=== PATIENT | male | born 1965 | race African-American/Black ===

== ENCOUNTER 2020-01-06 11:24 | Inpatient (IN) ==
[2020-01-07] MEDS ORDERED: CEFUROXIME INJ 1,500 MG in SYRINGE 1 EACH IV ONE (09:37)
[2020-01-07] MEDS ORDERED: DEXTROSE 10% 250 ML BAG IV PRN (09:37)
[2020-01-07] MEDS ORDERED: GLUCAGON 1 MG VIAL IM PRN (09:37)
[2020-01-07] MEDS ORDERED: SODIUM CHLORIDE 0.9% 1,000 ML IV SCH (10:00)
[2020-01-07] MEDS ORDERED: CLORAZEPATE 3.75 MG TABLET PO PRN (10:03)
[2020-01-07 10:31] LABS: Basophils # 0.1 10*3/uL (0.0-0.2); Basophils % 0.6 % (0.0-0.8); Eosinophils # 0.1 10*3/uL (0.0-0.87); Eosinophils % 1.3 % (0.00-10.9); Hemoglobin 13.9 GM/DL (14.0-18.0); Immature Granulocytes % 0.2 %; Immature Granulocytes Absolute 0.02 #; Lymphocytes # 1.9 10*3/uL (1.4-4.0); Lymphocytes % 23.7 % (21.2-54.2); Mean Corpuscular HGB Conc 33.1 GM/DL (32-36); Mean Platelet Volume 10.1 FL (9.6-12.0); Monocytes % 8.8 % (1.7-12.7); Neutrophils % 65.4 % (38.7-73.9); Platelet Count 235 T/CUMM (130-400); Red Blood Count 4.04 MC/CUMM (3.8-5.5); Red Cell Distribution Width 11.4 % (9.3-17.3); White Blood Count 8.2 T/CUMM (4-12)
[2020-01-07 10:52] LABS: Albumin 3.9 G/DL (3.4-5.0); Bilirubin,Total 1.1 MG/DL (0.2-1.0); Calcium 9.2 MG/DL (8.5-10.1); Osmolality,Calculated 274.8 MOS/KG (273-304); Total Protein 7.6 G/DL (6.4-8.3)
[2020-01-07] MEDS: INSULIN LISPRO 100 UNIT/ML SUBCUT SCH ×3 (11:06→21:19)
[2020-01-07 11:32] LABS: ABG Base Excess 1.6 MMOL/L (-2.5-2.5); ABG HCO3 25.4 MMOL/L (20-26); ABG Oxygen Saturation 94.4 % (95-100); ABG PCO2 37.2 MM HG (35-48); ABG PH 7.452 (7.35-7.45); ABG PO2 71.5 MM HG (80-95); ABG TCO2 26.5 MMOL/L (23-27); Allen Test Positive
[2020-01-07] MEDS: CHLORHEXIDINE 4% SOLN 118 ML BOTTLE TOP SCH ×2 (15:04→21:19)
[2020-01-07] MEDS: CHLORHEXIDINE 0.12% ORAL RINSE 60 ML BOTTLE SWISH/SPIT SCH (21:19)
[2020-01-08] MEDS ORDERED: VANCOMYCIN 1,000 MG VIAL ONE (04:22)
[2020-01-08] MEDS ORDERED: PAPAVERINE 60 MG/2 ML VIAL ONE (04:22)
[2020-01-08] MEDS ORDERED: VANCOMYCIN 500 MG VIAL ONE (04:22)
[2020-01-08] MEDS ORDERED: MIDAZOLAM 10 MG/2 ML VIAL ONE ×2 (05:55)
[2020-01-08] MEDS ORDERED: SUFentanil 250 MCG/5 ML AMP ONE (05:55)
[2020-01-08] MEDS ORDERED: DIAZEPAM 5 MG TABLET PO ONE (06:00)
[2020-01-08] MEDS ORDERED: FAMOTIDINE 20 MG TABLET PO ONE (06:00)
[2020-01-08] MEDS ORDERED: CEFUROXIME INJ 1,500 MG in SYRINGE 1 EACH IV ONE (07:00)
[2020-01-08] MEDS ORDERED: SODIUM CHLORIDE 0.9% 1,000 ML IV SCH (07:00)
[2020-01-08 07:42] LABS: ABG Base Excess 0.9 MMOL/L (-2.5-2.5); ABG HCO3 25.2 MMOL/L (20-26); ABG Oxygen Saturation 99.4 % (95-100); ABG PCO2 43.3 MM HG (35-48); ABG PH 7.389 (7.35-7.45); ABG TCO2 22.9 MMOL/L (23-27); Glucose Heart Surgery 168 MG/DL (74-106); Hematocrit Heart Surgery 40.3 PERCENT (42-52); Hemoglobin Heart Surgery 13.1 G/DL (14.0-18.0); PCO2 Patient Temp Arterial 43.3 MMHG; PH Patient Temp Arterial 7.389; Patient Temperature 37 CELCIUS; Potassium Heart/CVR 3.8 MMOL/L (3.5-5.1); Sodium Heart/CVR 138 MMOL/L (135-145)
[2020-01-08 07:50] LABS: Apearance,Urine CLEAR (Clear); Bacteria,Urine Occasional /HPF (Few); Bilirubin,Urine Negative (Negative); Blood, Urine Small mg/dL (Negative); Glucose,Urine (UA) Negative (Negative); Ketones,Urine Negative (Negative); Mucus,Urine Occasional /LPF (Occasional); Nitrite,Urine Negative (Negative); Protein,Urine Negative; RBC,Urine 8 /HPF (0-4); Squamous Epithelial Cell,Urine Occasional /HPF (0-10); Urine Color Yellow (Yellow); Urine Specific Gravity 1.016 (1.001-1.035); WBC,Urine <1 /HPF (0-6)
[2020-01-08] MEDS: CHLORHEXIDINE 0.12% ORAL RINSE 60 ML BOTTLE SWISH/SPIT SCH ×2 (08:41→21:04)
[2020-01-08] MEDS: INSULIN LISPRO 100 UNIT/ML SUBCUT SCH ×2 (08:41→12:28)
[2020-01-08] MEDS: CHLORHEXIDINE 4% SOLN 118 ML BOTTLE TOP SCH (08:41)
[2020-01-08] MEDS ORDERED: CALCIUM CHLORIDE 1,000 MG/10 ML VIAL IV ONE (09:19)
[2020-01-08] MEDS ORDERED: AMINOCAPROIC ACID 5,000 MG/20 ML VIAL ONE (09:20)
[2020-01-08] MEDS ORDERED: HEPARIN/NACL 0.9% 2 UNITS/ML 500 ML IV ONE (09:20)
[2020-01-08] MEDS ORDERED: NITROGLYCERIN DRIP 50 MG/250 ML BOTTLE IV ONE (09:20)
[2020-01-08] MEDS ORDERED: PHENYLEPHRINE DRIP 20 MG/250 ML PREMIX IV ONE (09:20)
[2020-01-08 09:21] LABS: Hematocrit Heart Surgery 29.3 PERCENT (42-52); Hemoglobin Heart Surgery 9.4 G/DL (14.0-18.0); PCO2 Patient Temp Venous 34.4 MM HG; PH Patient Temp Venous 7.466; PO2 Patient Temp Venous 35.3 MM HG; Potassium Heart/CVR 4.4 MMOL/L (3.5-5.1); VBG Base Excess 1.4 MEQ/L (0-4); VBG HCO3 25.3 MEQ/L (24-28); VBG Oxygen Saturation 77.6 %; VBG PCO2 37.9 MMHG (41-51); VBG PH 7.436; VBG PO2 40.6 MMHG (17-40)
[2020-01-08] MEDS ORDERED: ALBUMIN 5% 12.5 GM/250 ML VIAL IV ONE (09:49)
[2020-01-08] MEDS ORDERED: POTASSIUM CHLORIDE RIDER 100 ML IV ONE ×2 (09:49→12:30)
[2020-01-08] MEDS ORDERED: CALCIUM CHLORIDE 1,000 MG/10 ML SYRINGE IV ONE (09:49)
[2020-01-08] MEDS ORDERED: SODIUM BICARBONATE 50 MEQ/50 ML VIAL IV ONE ×2 (09:49→10:41)
[2020-01-08] MEDS ORDERED: NITROPRUSSIDE 50 MG/2 ML VIAL ONE (09:49)
[2020-01-08] MEDS ORDERED: PHENYLEPHRINE DRIP 40 MG/250 ML PREMIX IV ONE (09:53)
[2020-01-08 09:54] LABS: Hematocrit Heart Surgery 31.7 PERCENT (42-52); Hemoglobin Heart Surgery 10.3 G/DL (14.0-18.0); PCO2 Patient Temp Venous 35.8 MM HG; PH Patient Temp Venous 7.443; PO2 Patient Temp Venous 41.9 MM HG; Potassium Heart/CVR 4.1 MMOL/L (3.5-5.1); VBG Base Excess 0.7 MEQ/L (0-4); VBG HCO3 24.8 MEQ/L (24-28); VBG Oxygen Saturation 86.4 %; VBG PCO2 41.3 MMHG (41-51); VBG PH 7.399; VBG PO2 51.5 MMHG (17-40)
[2020-01-08 10:26] LABS: Hematocrit Heart Surgery 33.1 PERCENT (42-52); Hemoglobin Heart Surgery 10.7 G/DL (14.0-18.0); PCO2 Patient Temp Venous 42.6 MM HG; PH Patient Temp Venous 7.391; Potassium Heart/CVR 4.3 MMOL/L (3.5-5.1); VBG Base Excess 0.7 MEQ/L (0-4); VBG HCO3 24.8 MEQ/L (24-28); VBG Oxygen Saturation 79.8 %; VBG PCO2 42.6 MMHG (41-51); VBG PH 7.391
[2020-01-08] MEDS ORDERED: DEXTROSE 5% KCL 20 MEQ 20 MEQ/1,000 ML BAG IV ONE (10:39)
[2020-01-08] MEDS ORDERED: ALBUMIN 25% 25 GM/100 ML VIAL IV ONE (10:39)
[2020-01-08] MEDS ORDERED: PROTAMINE SULFATE 250 MG/25 ML VIAL IV ONE (10:39)
[2020-01-08] MEDS ORDERED: MAGNESIUM SULFATE 5 GM/10 ML VIAL IV ONE (10:40)
[2020-01-08] MEDS ORDERED: FUROSEMIDE 20 MG/2 ML VIAL ONE (10:40)
[2020-01-08] MEDS ORDERED: HEPARIN 10,000 UNIT/10 ML VIAL ONE (10:40)
[2020-01-08] MEDS ORDERED: methylPREDNISolone SOD SUC 1,000 MG/8 ML VIAL ONE (10:41)
[2020-01-08] MEDS ORDERED: LIDOCAINE 2% 5 ML VIAL ONE ×2 (10:41→12:25)
[2020-01-08 11:02] LABS: ABG Base Excess -0.7 MMOL/L (-2.5-2.5); ABG HCO3 23.9 MMOL/L (20-26); ABG Oxygen Saturation 98.6 % (95-100); ABG PCO2 40.3 MM HG (35-48); ABG PH 7.387 (7.35-7.45); ABG TCO2 21.7 MMOL/L (23-27); Glucose Heart Surgery 225 MG/DL (74-106); Hematocrit Heart Surgery 34.5 PERCENT (42-52); Hemoglobin Heart Surgery 11.2 G/DL (14.0-18.0); Ionized Calcium Arterial 1.25 MMOL/L (1.21-1.46); PCO2 Patient Temp Arterial 40.3 MMHG; PH Patient Temp Arterial 7.387; Patient Temperature 37 CELCIUS; Sodium Heart/CVR 136 MMOL/L (135-145)
[2020-01-08] MEDS ORDERED: INSULIN REGULAR DRIP 100 ML IV SCH (11:37)
[2020-01-08] MEDS ORDERED: ACETAMINOPHEN 650 MG SUPP RECTAL PRN (11:37)
[2020-01-08] MEDS ORDERED: SODIUM CHLORIDE 0.45% 1,000 ML IV SCH ×2 (11:37)
[2020-01-08] MEDS ORDERED: VECURONIUM 10 MG VIAL IV PRN ×2 (11:37)
[2020-01-08] MEDS ORDERED: MAGNESIUM SULF RIDER 4 GM in PREMIX 1 EACH IV PRN (11:37)
[2020-01-08] MEDS ORDERED: CALCIUM CHLORIDE 1,000 MG/10 ML SYRINGE IV PRN (11:37)
[2020-01-08] MEDS ORDERED: CHLORHEXIDINE 4% SOLN 118 ML BOTTLE TOP PRN (11:37)
[2020-01-08] MEDS ORDERED: LACTATED RINGERS 250 ML IV PRN (11:37)
[2020-01-08] MEDS ORDERED: INSULIN REGULAR 100 UNIT/ML IV ONE (11:37)
[2020-01-08] MEDS ORDERED: PHENYLEPHRINE DRIP 40 MG/250 ML PREMIX IV PRN (11:37)
[2020-01-08] MEDS ORDERED: ONDANSETRON 4 MG/2 ML VIAL IV PRN (11:37)
[2020-01-08] MEDS ORDERED: MIDAZOLAM 10 MG/2 ML VIAL IV PRN (11:37)
[2020-01-08] MEDS ORDERED: INSULIN REGULAR 100 UNIT/ML IV PRN (11:37)
[2020-01-08] MEDS ORDERED: DEXTROSE 10% 250 ML BAG IV PRN ×2 (11:37)
[2020-01-08] MEDS ORDERED: NITROPRUSSIDE 100 MG in DEXTROSE 5% 250 ML IV PRN (11:37)
[2020-01-08] MEDS ORDERED: MORPHINE 10 MG/1 ML VIAL IV PRN (11:37)
[2020-01-08] MEDS ORDERED: MAGNESIUM SULF RIDER 2 GM in PREMIX 1 EACH IV PRN (11:37)
[2020-01-08 12:06] LABS: ABG Base Excess -0.9 MMOL/L (-2.5-2.5); ABG Oxygen Saturation 94.3 % (95-100); ABG PCO2 40.6 MM HG (35-48); ABG PO2 76.9 MM HG (80-95); ABG TCO2 25.3 MMOL/L (23-27); Glucose Heart Surgery 200 MG/DL (74-106); Hemoglobin Heart Surgery 12.2 G/DL (14.0-18.0); Potassium Heart/CVR 3.9 MMOL/L (3.5-5.1)
[2020-01-08 12:14] LABS: Basophils % 0.2 % (0.0-0.8); Eosinophils % 0.3 % (0.00-10.9); Hematocrit 34.9 VOL% (42.0-52.0); Immature Granulocytes % 0.7 %; Immature Granulocytes Absolute 0.09 #; Lymphocytes # 0.8 10*3/uL (1.4-4.0); Lymphocytes % 6.4 % (21.2-54.2); Mean Corpuscular HGB Conc 33.5 GM/DL (32-36); Mean Corpuscular Volume 104.8 FL (87-102); Mean Platelet Volume 10.1 FL (9.6-12.0); Monocytes % 4.8 % (1.7-12.7); Neutrophils % 87.6 % (38.7-73.9); Red Blood Count 3.33 MC/CUMM (3.8-5.5); Red Cell Distribution Width 11.3 % (9.3-17.3)
[2020-01-08 12:15] LABS: Hemoglobin 11.7 GM/DL (14.0-18.0); Platelet Count 166 T/CUMM (130-400); White Blood Count 12.3 T/CUMM (4-12)
[2020-01-08 12:20] LABS: INR 1.1; PT Patient Result 12.4 SECS (9.6-12.2); Partial Thromboplastin Time 23.8 SECS (20.8-36.0)
[2020-01-08 12:24] LABS: Albumin 3.4 G/DL (3.4-5.0); Bilirubin,Total 0.7 MG/DL (0.2-1.0); Calcium 8.4 MG/DL (8.5-10.1); Osmolality,Calculated 284.4 MOS/KG (273-304); Total Protein 6.1 G/DL (6.4-8.3)
[2020-01-08] MEDS ORDERED: SODIUM CHLORIDE 0.9% 250 ML IV ONE (12:25)
[2020-01-08] MEDS ORDERED: SEVOFLURANE 1 UNIT/15 MINUTE INH ONE (12:25)
[2020-01-08] MEDS ORDERED: ETOMIDATE 40 MG/20 ML VIAL IV ONE (12:25)
[2020-01-08] MEDS ORDERED: SODIUM CHLORIDE 0.9% 1,000 ML IV ONE (12:25)
[2020-01-08] MEDS ORDERED: LACTATED RINGERS 1,000 ML IV ONE (12:25)
[2020-01-08] MEDS ORDERED: VECURONIUM 10 MG VIAL IV ONE (12:25)
[2020-01-08] MEDS ORDERED: SODIUM CHLORIDE 0.9% 200 ML IV ONE (12:25)
[2020-01-08] MEDS ORDERED: SUCCINYLCHOLINE 200 MG/10 ML VIAL ONE (12:25)
[2020-01-08] MEDS ORDERED: MINERAL OIL/PETROLATUM OPH OINT 3.5 GM TUBE ONE (12:26)
[2020-01-08] MEDS: POTASSIUM CHLORIDE RIDER 20 MEQ in PREMIX 1 EACH IV PRN ×4 (12:28→18:15)
[2020-01-08 12:33] LABS: CKMB % 4.7 %
[2020-01-08 12:35] LABS: Troponin I 3.97 NG/ML (0.00-0.045)
[2020-01-08] MEDS: LACTATED RINGERS 1,000 ML IV PRN ×2 (13:00→15:48)
[2020-01-08] MEDS: POTASSIUM CHLORIDE RIDER 10 MEQ in PREMIX 1 EACH IV PRN ×2 (13:06→19:19)
[2020-01-08 13:37] LABS: ABG Base Excess -1.1 MMOL/L (-2.5-2.5); ABG HCO3 23.5 MMOL/L (20-26); ABG Oxygen Saturation 97.9 % (95-100); ABG PCO2 41.5 MM HG (35-48); ABG PH 7.372 (7.35-7.45); ABG TCO2 21.3 MMOL/L (23-27); Glucose Heart Surgery 173 MG/DL (74-106); Hemoglobin Heart Surgery 12.4 G/DL (14.0-18.0); Potassium Heart/CVR 4.1 MMOL/L (3.5-5.1)
[2020-01-08] MEDS: ALBUMIN 5% 12.5 GM in PREMIX 1 EACH IV PRN ×2 (15:09→15:36)
[2020-01-08] MEDS: MIDAZOLAM 2 MG/2 ML VIAL IV PRN ×2 (15:30→17:42)
[2020-01-08 16:04] LABS: ABG Base Excess -1.6 MMOL/L (-2.5-2.5); ABG Oxygen Saturation 96.3 % (95-100); ABG PCO2 43.8 MM HG (35-48); ABG PH 7.356 (7.35-7.45); ABG PO2 92.2 MM HG (80-95); ABG TCO2 25.3 MMOL/L (23-27); Glucose Heart Surgery 133 MG/DL (74-106); Hemoglobin Heart Surgery 12.1 G/DL (14.0-18.0); Potassium Heart/CVR 3.3 MMOL/L (3.5-5.1)
[2020-01-08 16:37] LABS: ABG Base Excess -1.7 MMOL/L (-2.5-2.5); ABG Oxygen Saturation 96.8 % (95-100); ABG PCO2 51.9 MM HG (35-48); ABG PO2 94.5 MM HG (80-95); ABG TCO2 22.9 MMOL/L (23-27); Glucose Heart Surgery 134 MG/DL (74-106); Hematocrit Heart Surgery 37.1 PERCENT (42-52); Hemoglobin Heart Surgery 12.1 G/DL (14.0-18.0); Potassium Heart/CVR 3.8 MMOL/L (3.5-5.1)
[2020-01-08 18:02] LABS: ABG Base Excess -1.6 MMOL/L (-2.5-2.5); ABG Oxygen Saturation 97.3 % (95-100); ABG PH 7.335 (7.35-7.45); ABG PO2 94.8 MM HG (80-95); Glucose Heart Surgery 115 MG/DL (74-106); Hematocrit Heart Surgery 35.8 PERCENT (42-52); Hemoglobin Heart Surgery 11.6 G/DL (14.0-18.0); Potassium Heart/CVR 3.9 MMOL/L (3.5-5.1)
[2020-01-08] MEDS: CEFUROXIME INJ 1,500 MG in SYRINGE 1 EACH IV SCH (18:39)
[2020-01-08] MEDS: MORPHINE 4 MG/1 ML VIAL IV PRN (18:39)
[2020-01-08 19:39] LABS: ABG Base Excess -1.3 MMOL/L (-2.5-2.5); ABG HCO3 23.3 MMOL/L (20-26); ABG Oxygen Saturation 97.5 % (95-100); ABG PH 7.353 (7.35-7.45); ABG PO2 96.3 MM HG (80-95); ABG TCO2 21.7 MMOL/L (23-27); Glucose Heart Surgery 117 MG/DL (74-106); Hematocrit Heart Surgery 37.8 PERCENT (42-52); Hemoglobin Heart Surgery 12.3 G/DL (14.0-18.0); Potassium Heart/CVR 4.3 MMOL/L (3.5-5.1)
[2020-01-08 20:04] LABS: CKMB % 3.8 %
[2020-01-08 20:07] LABS: Troponin I 8.09 NG/ML (0.00-0.045)
[2020-01-08] MEDS: KETOROLAC 30 MG/1 ML VIAL IV SCH (20:08)
[2020-01-08 20:35] LABS: ABG Base Excess -2.4 MMOL/L (-2.5-2.5); ABG HCO3 22.4 MMOL/L (20-26); ABG Oxygen Saturation 96.3 % (95-100); ABG PH 7.343 (7.35-7.45); ABG PO2 85.1 MM HG (80-95); ABG TCO2 20.9 MMOL/L (23-27); Glucose Heart Surgery 112 MG/DL (74-106); Hematocrit Heart Surgery 36.3 PERCENT (42-52); Hemoglobin Heart Surgery 11.8 G/DL (14.0-18.0)
[2020-01-08 22:13] LABS: ABG Base Excess -1.1 MMOL/L (-2.5-2.5); ABG HCO3 23.4 MMOL/L (20-26); ABG Oxygen Saturation 94.5 % (95-100); ABG PCO2 46.3 MM HG (35-48); ABG PH 7.341 (7.35-7.45); ABG PO2 74.5 MM HG (80-95); ABG TCO2 22.3 MMOL/L (23-27); Glucose Heart Surgery 122 MG/DL (74-106); Hematocrit Heart Surgery 36.8 PERCENT (42-52); Potassium Heart/CVR 4.1 MMOL/L (3.5-5.1)
[2020-01-09] MEDS: ALBUMIN 5% 12.5 GM in PREMIX 1 EACH IV PRN (00:35)
[2020-01-09] MEDS ORDERED: FUROSEMIDE 40 MG/4 ML VIAL IV ONE (00:54)
[2020-01-09] MEDS: MORPHINE 4 MG/1 ML VIAL IV PRN (01:22)
[2020-01-09] MEDS: KETOROLAC 30 MG/1 ML VIAL IV SCH ×4 (01:55→20:38)
[2020-01-09 03:19] LABS: ABG Base Excess 0.2 MMOL/L (-2.5-2.5); ABG HCO3 24.6 MMOL/L (20-26); ABG Oxygen Saturation 93.4 % (95-100); ABG PCO2 45.4 MM HG (35-48); ABG PH 7.365 (7.35-7.45); ABG PO2 67.1 MM HG (80-95); ABG TCO2 23.3 MMOL/L (23-27); Glucose Heart Surgery 141 MG/DL (74-106); Hematocrit Heart Surgery 35.2 PERCENT (42-52); Hemoglobin Heart Surgery 11.4 G/DL (14.0-18.0); Potassium Heart/CVR 3.8 MMOL/L (3.5-5.1)
[2020-01-09 03:23] LABS: Basophils % 0.1 % (0.0-0.8); Hemoglobin 11.2 GM/DL (14.0-18.0); Immature Granulocytes % 0.5 %; Lymphocytes # 0.7 10*3/uL (1.4-4.0); Lymphocytes % 3.3 % (21.2-54.2); Mean Corpuscular HGB Conc 32.9 GM/DL (32-36); Mean Corpuscular Volume 105.6 FL (87-102); Mean Platelet Volume 10.4 FL (9.6-12.0); Monocytes % 5.9 % (1.7-12.7); Neutrophils % 90.2 % (38.7-73.9); Platelet Count 180 T/CUMM (130-400); Red Blood Count 3.22 MC/CUMM (3.8-5.5); Red Cell Distribution Width 11.5 % (9.3-17.3); White Blood Count 19.8 T/CUMM (4-12)
[2020-01-09] MEDS: POTASSIUM CHLORIDE RIDER 20 MEQ in PREMIX 1 EACH IV PRN (03:32)
[2020-01-09 03:40] LABS: Albumin 3.7 G/DL (3.4-5.0); Bilirubin,Direct 0.15 MG/DL (0.0-0.20); Bilirubin,Total 0.6 MG/DL (0.2-1.0); Calcium 8.5 MG/DL (8.5-10.1); Osmolality,Calculated 276.7 MOS/KG (273-304); Total Protein 6.7 G/DL (6.4-8.3)
[2020-01-09 03:43] LABS: CKMB % 2.8 %
[2020-01-09 03:47] LABS: Band Neutrophils 3 % (0-10); Lymphocytes 3 % (20-55); Platelet Estimate Normal; Segmented Neutrophils 92 % (50-85); Total Cells Counted 100; Troponin I 4.92 NG/ML (0.00-0.045)
[2020-01-09] MEDS: POTASSIUM CHLORIDE RIDER 10 MEQ in PREMIX 1 EACH IV PRN (04:38)
[2020-01-09] MEDS: CEFUROXIME INJ 1,500 MG in SYRINGE 1 EACH IV SCH ×2 (06:34→20:40)
[2020-01-09] MEDS ORDERED: hydrALAZINE 20 MG/1 ML VIAL IV PRN (07:10)
[2020-01-09] MEDS ORDERED: GLUCAGON 1 MG VIAL IM PRN (08:00)
[2020-01-09] MEDS: oxyCODONE/ACETAMINOPHEN 5-325 MG TABLET PO PRN ×2 (09:51→20:40)
[2020-01-09] MEDS: metFORMIN 500 MG TABLET PO SCH ×2 (09:52→17:30)
[2020-01-09] MEDS: ROSUVASTATIN 20 MG TABLET PO SCH (09:52)
[2020-01-09] MEDS: carvediloL 25 MG TABLET PO SCH ×2 (09:52→20:38)
[2020-01-09] MEDS: LOSARTAN 50 MG TABLET PO SCH (09:52)
[2020-01-09] MEDS: ASPIRIN EC 81 MG TABLET PO SCH (09:53)
[2020-01-09] MEDS: PANTOPRAZOLE 20 MG TABLET PO SCH (09:53)
[2020-01-09] MEDS: EZETIMIBE 10 MG TABLET PO SCH (10:36)
[2020-01-09] MEDS ORDERED: oxyCODONE/ACETAMINOPHEN 5-325 MG TABLET PO ONE (10:53)
[2020-01-09] MEDS ORDERED: INSULIN REGULAR 100 UNIT/ML SUBCUT SCH (11:00)
[2020-01-09] MEDS: CHLORHEXIDINE 0.12% ORAL RINSE 60 ML BOTTLE SWISH/SPIT SCH (11:28)
[2020-01-09 11:51] LABS: CKMB % 1.5 %
[2020-01-09 11:53] LABS: Troponin I 3.32 NG/ML (0.00-0.045)
[2020-01-09] MEDS ORDERED: oxyCODONE/ACETAMINOPHEN 5-325 MG TABLET PO PRN (16:36)
[2020-01-09] MEDS ORDERED: DOXAZOSIN 1 MG TABLET PO SCH (19:00)
[2020-01-09] MEDS: hydrALAZINE 25 MG TABLET PO SCH (20:38)
[2020-01-09] MEDS: DOXAZOSIN 1 MG TABLET PO SCH (20:38)
[2020-01-10] MEDS: KETOROLAC 30 MG/1 ML VIAL IV SCH ×4 (02:38→21:26)
[2020-01-10] MEDS: oxyCODONE/ACETAMINOPHEN 5-325 MG TABLET PO PRN ×4 (04:45→21:27)
[2020-01-10 04:58] LABS: Basophils % 0.1 % (0.0-0.8); Hematocrit 34.4 VOL% (42.0-52.0); Hemoglobin 11.1 GM/DL (14.0-18.0); Immature Granulocytes % 0.8 %; Immature Granulocytes Absolute 0.15 #; Lymphocytes # 1.2 10*3/uL (1.4-4.0); Mean Corpuscular HGB Conc 32.3 GM/DL (32-36); Mean Corpuscular Volume 107.8 FL (87-102); Mean Platelet Volume 11.8 FL (9.6-12.0); Monocytes % 9.8 % (1.7-12.7); Neutrophils % 83.3 % (38.7-73.9); Platelet Count 175 T/CUMM (130-400); Red Blood Count 3.19 MC/CUMM (3.8-5.5); Red Cell Distribution Width 11.5 % (9.3-17.3); White Blood Count 19.8 T/CUMM (4-12)
[2020-01-10] MEDS ORDERED: AMIODARONE INJ 150 MG in DEXTROSE 5% 100 ML IV ONE (05:00)
[2020-01-10] MEDS ORDERED: AMIODARONE INJ 450 MG in DEXTROSE 5% 241 ML IV SCH ×2 (05:10→11:00)
[2020-01-10 05:41] LABS: Albumin 3.6 G/DL (3.4-5.0); Bilirubin,Direct 0.12 MG/DL (0.0-0.20); Bilirubin,Total 1.5 MG/DL (0.2-1.0); Calcium 8.7 MG/DL (8.5-10.1); Osmolality,Calculated 285.5 MOS/KG (273-304)
[2020-01-10] MEDS: PANTOPRAZOLE 20 MG TABLET PO SCH (09:12)
[2020-01-10] MEDS: LOSARTAN 50 MG TABLET PO SCH (09:12)
[2020-01-10] MEDS: hydrALAZINE 25 MG TABLET PO SCH ×2 (09:12→21:28)
[2020-01-10] MEDS: EZETIMIBE 10 MG TABLET PO SCH (09:12)
[2020-01-10] MEDS: metFORMIN 500 MG TABLET PO SCH ×2 (09:12→16:43)
[2020-01-10] MEDS: ROSUVASTATIN 20 MG TABLET PO SCH (09:12)
[2020-01-10] MEDS: carvediloL 25 MG TABLET PO SCH ×2 (09:13→21:27)
[2020-01-10] MEDS: ASPIRIN EC 81 MG TABLET PO SCH (09:13)
[2020-01-10] MEDS ORDERED: GLUCAGON 1 MG VIAL IM PRN (10:04)
[2020-01-10] MEDS ORDERED: DEXTROSE 10% 250 ML BAG IV PRN (10:04)
[2020-01-10] MEDS: INSULIN LISPRO 100 UNIT/ML SUBCUT SCH ×3 (13:44→21:28)
[2020-01-10] MEDS: AMIODARONE 200 MG TABLET PO SCH ×2 (17:59→21:28)
[2020-01-10] MEDS: DOXAZOSIN 1 MG TABLET PO SCH (21:28)
[2020-01-11] MEDS: KETOROLAC 30 MG/1 ML VIAL IV SCH ×4 (01:11→20:46)
[2020-01-11] MEDS: oxyCODONE/ACETAMINOPHEN 5-325 MG TABLET PO PRN ×3 (05:51→22:38)
[2020-01-11 06:12] LABS: Basophils % 0.1 % (0.0-0.8); Eosinophils % 0.2 % (0.00-10.9); Hematocrit 33.2 VOL% (42.0-52.0); Hemoglobin 10.6 GM/DL (14.0-18.0); Immature Granulocytes % 0.7 %; Lymphocytes # 2.5 10*3/uL (1.4-4.0); Lymphocytes % 16.9 % (21.2-54.2); Mean Corpuscular HGB Conc 31.9 GM/DL (32-36); Mean Corpuscular Volume 107.8 FL (87-102); Mean Platelet Volume 11.3 FL (9.6-12.0); Monocytes % 13.5 % (1.7-12.7); Neutrophils % 68.6 % (38.7-73.9); Platelet Count 164 T/CUMM (130-400); Red Blood Count 3.08 MC/CUMM (3.8-5.5); Red Cell Distribution Width 11.7 % (9.3-17.3); White Blood Count 14.5 T/CUMM (4-12)
[2020-01-11 06:39] LABS: Albumin 3.2 G/DL (3.4-5.0); Bilirubin,Direct 0.13 MG/DL (0.0-0.20); Bilirubin,Total 0.4 MG/DL (0.2-1.0); Calcium 8.5 MG/DL (8.5-10.1); Osmolality,Calculated 281.5 MOS/KG (273-304); Total Protein 6.5 G/DL (6.4-8.3)
[2020-01-11] MEDS: EZETIMIBE 10 MG TABLET PO SCH (09:13)
[2020-01-11] MEDS: carvediloL 25 MG TABLET PO SCH ×2 (09:13→20:45)
[2020-01-11] MEDS: ASPIRIN EC 81 MG TABLET PO SCH (09:13)
[2020-01-11] MEDS: PANTOPRAZOLE 20 MG TABLET PO SCH (09:13)
[2020-01-11] MEDS: AMIODARONE 200 MG TABLET PO SCH ×2 (09:13→20:48)
[2020-01-11] MEDS: metFORMIN 500 MG TABLET PO SCH ×2 (09:13→16:44)
[2020-01-11] MEDS: hydrALAZINE 25 MG TABLET PO SCH ×2 (09:13→20:45)
[2020-01-11] MEDS: ROSUVASTATIN 20 MG TABLET PO SCH (09:13)
[2020-01-11] MEDS: LOSARTAN 50 MG TABLET PO SCH (09:13)
[2020-01-11] MEDS: INSULIN LISPRO 100 UNIT/ML SUBCUT SCH ×4 (09:14→20:45)
[2020-01-11] MEDS: DOXAZOSIN 1 MG TABLET PO SCH (20:45)
[2020-01-12] MEDS: KETOROLAC 30 MG/1 ML VIAL IV SCH ×4 (03:14→21:22)
[2020-01-12 05:33] LABS: Basophils % 0.2 % (0.0-0.8); Eosinophils # 0.1 10*3/uL (0.0-0.87); Hematocrit 31.9 VOL% (42.0-52.0); Hemoglobin 10.4 GM/DL (14.0-18.0); Immature Granulocytes % 0.8 %; Immature Granulocytes Absolute 0.08 #; Lymphocytes # 2.4 10*3/uL (1.4-4.0); Lymphocytes % 22.9 % (21.2-54.2); Mean Corpuscular HGB Conc 32.6 GM/DL (32-36); Monocytes % 11.9 % (1.7-12.7); Neutrophils % 63.2 % (38.7-73.9); Platelet Count 176 T/CUMM (130-400); Red Blood Count 3.01 MC/CUMM (3.8-5.5); Red Cell Distribution Width 11.3 % (9.3-17.3); White Blood Count 10.6 T/CUMM (4-12)
[2020-01-12 05:56] LABS: Calcium 8.3 MG/DL (8.5-10.1); Osmolality,Calculated 282.4 MOS/KG (273-304)
[2020-01-12] MEDS: metFORMIN 500 MG TABLET PO SCH ×2 (08:22→17:13)
[2020-01-12] MEDS: EZETIMIBE 10 MG TABLET PO SCH (08:22)
[2020-01-12] MEDS: ROSUVASTATIN 20 MG TABLET PO SCH (08:22)
[2020-01-12] MEDS: AMIODARONE 200 MG TABLET PO SCH ×2 (08:22→21:23)
[2020-01-12] MEDS: carvediloL 25 MG TABLET PO SCH ×2 (08:22→21:24)
[2020-01-12] MEDS: PANTOPRAZOLE 20 MG TABLET PO SCH (08:23)
[2020-01-12] MEDS: hydrALAZINE 25 MG TABLET PO SCH ×2 (08:23→21:22)
[2020-01-12] MEDS: ASPIRIN EC 81 MG TABLET PO SCH (08:23)
[2020-01-12] MEDS: LOSARTAN 50 MG TABLET PO SCH (08:23)
[2020-01-12] MEDS: INSULIN LISPRO 100 UNIT/ML SUBCUT SCH ×4 (08:39→21:33)
[2020-01-12] MEDS: oxyCODONE/ACETAMINOPHEN 5-325 MG TABLET PO PRN ×2 (08:44→21:48)
[2020-01-12] MEDS: DOXAZOSIN 1 MG TABLET PO SCH (21:23)
[2020-01-13 05:15] LABS: Basophils % 0.2 % (0.0-0.8); Eosinophils # 0.2 10*3/uL (0.0-0.87); Eosinophils % 1.5 % (0.00-10.9); Hemoglobin 10.4 GM/DL (14.0-18.0); Immature Granulocytes % 0.7 %; Immature Granulocytes Absolute 0.07 #; Lymphocytes # 2.4 10*3/uL (1.4-4.0); Lymphocytes % 24.5 % (21.2-54.2); Mean Corpuscular HGB Conc 33.5 GM/DL (32-36); Mean Corpuscular Volume 105.1 FL (87-102); Mean Platelet Volume 11.4 FL (9.6-12.0); Monocytes % 11.5 % (1.7-12.7); Neutrophils % 61.6 % (38.7-73.9); Platelet Count 195 T/CUMM (130-400); Red Blood Count 2.95 MC/CUMM (3.8-5.5); Red Cell Distribution Width 11.4 % (9.3-17.3); White Blood Count 9.9 T/CUMM (4-12)
[2020-01-13 05:34] LABS: Calcium 8.4 MG/DL (8.5-10.1); Osmolality,Calculated 284.3 MOS/KG (273-304)
[2020-01-13] MEDS ORDERED: LOSARTAN 50 MG TABLET PO SCH (07:17)
[2020-01-13] MEDS: INSULIN LISPRO 100 UNIT/ML SUBCUT SCH (08:20)
[2020-01-13 09:07] VITALS: BP 131/89
[2020-01-13] MEDS: AMIODARONE 200 MG TABLET PO SCH (09:48)
[2020-01-13] MEDS: ASPIRIN EC 81 MG TABLET PO SCH (09:48)
[2020-01-13] MEDS: hydrALAZINE 25 MG TABLET PO SCH (09:50)
[2020-01-13] MEDS: PANTOPRAZOLE 20 MG TABLET PO SCH (09:51)
[2020-01-13] MEDS: metFORMIN 500 MG TABLET PO SCH (09:52)
[2020-01-13] MEDS: carvediloL 25 MG TABLET PO SCH (09:52)
[2020-01-13] MEDS: EZETIMIBE 10 MG TABLET PO SCH (09:54)
[2020-01-13] MEDS: ROSUVASTATIN 20 MG TABLET PO SCH (09:54)
== END 2020-01-13 10:25 | disposition home or self-care (01) | DRG 236 ==
LOC: N.TELES 01-07 09:26 → N.CVR 01-08 11:18 → N.ICU 01-09 07:23 → N.TELES 01-09 13:36